=== PATIENT | male | born 1965 | race Caucasian/White ===

== ENCOUNTER 2022-02-03 15:11 | Emergency (ER) | payer SELFPAY ==
[2022-02-03 15:18] VITALS: BP 137/83; PULSE 64; TEMP 98.2; BMI 24.0
[2022-02-03] MEDS ORDERED: SODIUM CHLORIDE 0.9% 500 ML INFUS.BAG IV ONE (16:32)
[2022-02-03 17:31] LABS: BASO % 0.5 % (0-2.0); LYMPH % 17.1 % (8-40); MCH 21.7 pg (25.7-33.7); MCHC 31.8 g/dl (32.0-35.9); MEAN CELL VOLUME 68.1 fl (80-96); MEAN PLT VOLUME 8.9 fl (7.5-11.1); MONO % 4.7 % (3.8-10.2); NEUT % 76.7 % (42.8-82.8); PLATELET COUNT 218 10^3/uL (134-434); RBC 6.46 M/mm3 (4.00-5.60); WHITE BLOOD COUNT 6.8 K/mm3 (4.0-10.0)
[2022-02-03 17:52] LABS: ANISOCYTOSIS 2+; MACROCYTOSIS 0
[2022-02-03 17:53] LABS: CALCIUM 9.2 mg/dL (8.5-10.1)
[2022-02-03 17:54] LABS: ALBUMIN 4.4 g/dl (3.4-5.0); BLOOD UREA NITROGEN 12.7 mg/dL (7-18)
[2022-02-03 17:57] LABS: CREATININE 1.1 mg/dL (0.55-1.3)
[2022-02-03 17:58] LABS: BILIRUBIN,TOTAL 0.4 mg/dL (0.2-1)
[2022-02-03 17:59] LABS: TOT PROT 7.8 g/dl (6.4-8.2)
== END 2022-02-03 22:20 | disposition home or self-care (01) ==
LOC: JER 15:11
DX: R42 Dizziness and giddiness (principal); R51.9 Headache, unspecified
CPT/HCPCS: 36415; 70450-TC; 80053; 82550; 84443; 84484; 85025; 93005; 93010; 99285-25